=== PATIENT | female | born 1990 | race Caucasian/White ===

== ENCOUNTER 2018-09-09 00:19 | Inpatient (IN) | payer BC ==
[2018-09-09] MEDS ORDERED: Ringers Lactate 1,000 ML IV PRN (15:53)
[2018-09-09] MEDS ORDERED: PROMETHAZINE 25 MG/ML VIAL IM PRN ×2 (15:53)
[2018-09-09] MEDS ORDERED: BUTORPHANOL 1 MG/ML INJ IV PRN (15:53)
[2018-09-09] MEDS ORDERED: Ringers Lactate 1,000 ML IV SCH (16:00)
[2018-09-09] MEDS ORDERED: miSOPROStol 100 MCG TAB VAG SCH (16:00)
[2018-09-09] MEDS ORDERED: OXYTOCIN/LR 20 UNIT/1,000 ML BAG IV SCH (16:00)
[2018-09-09 17:05] LABS: RPR Titer ND
[2018-09-09 17:11] LABS: Basophils % 0.2 % (0-1.3); Eosinophils % 0.5 % (0-4.4); Hematocrit 38.9 % (36.0-45.0); Lymphocytes % 17.4 % (15.3-44.8); MPV 11.3 fL (7.6-11.3); Monocytes % 7.5 % (3.3-12.3); RBC Red Blood Cell Count 4.09 M/uL (3.86-4.86)
[2018-09-09 17:15] LABS: Urine Appearance CLOUDY; Urine Bilirubin NEGATIVE (NEG); Urine Blood TRACE (NEG); Urine Color YELLOW; Urine Glucose NEGATIVE (NEG); Urine Protein NEGATIVE (NEG)
[2018-09-09 17:23] LABS: Urine Microscopic Reflex ORDER UMIC
[2018-09-09 17:31] LABS: Urine Bacteria LOADED /HPF (<20); Urine Culture Reflex Order REFLEXED; Urine RBC <5 /HPF (NONE SEEN)
[2018-09-09 18:56] VITALS: BMI 40.2
--- NOTE | 2018-09-09 20:45 | PREOPHP ---
Date of Admission: 09/09/2018 This is a 27-year-old 3, para 2, 39 weeks today, Rh positive, immune to Rubella, negative bet a strep screen, for induction. She is about 1.5, almost 2 cm, 50% effaced, but the baby is still sidney rly high at -2 station, but it is applied to the cervix. FHTs are normal and reactive. Vital signs are all good. We have inserted one 25 mcg Cytotec after full discussion in our office and here again today. I anticipate this is probably all she needs and once she gets into a good active labor jeff rn, switch over to oxytocin. She is going to be wanting an epidural at 4 cm and of course, she knows that all she has to do is ask at that point. Full admission talk given. ANSELMO/MERI Voice ID: [id number]
[2018-09-09] MEDS ORDERED: ZOLPIDEM TARTRATE 5 MG TABLET ONE (21:35)
[2018-09-09 22:35] LABS: RPR (Rapid Plasma Reagin) NON-REACT (NON-REACT)
[2018-09-09] MEDS ORDERED: FENTANYL CITR 100 MCG/2 ML IV ONE (23:25)
[2018-09-09] MEDS ORDERED: ROPIVACAINE HCL 100 ML IV PRN (23:25)
[2018-09-09] MEDS ORDERED: ROPIVACAINE HCL 2 MG/ML 100ML IV ONE (23:30)
[2018-09-09] MEDS ORDERED: ROPIVACAINE HCL 20 ML ONE (23:52)
[2018-09-09] MEDS ORDERED: Ringers Lactate 2,000 ML IV ONE (23:52)
[2018-09-10] MEDS ORDERED: FENTANYL/BUPIVACAINE/NS/PF 200 MCG/100 ML BAG EP ONE (01:23)
[2018-09-10] MEDS ORDERED: METHYLERGONOVINE 0.2MG/ML AMP IM ONE (03:35)
[2018-09-10] MEDS ORDERED: LIDOCAINE 1% MPF 30 ML VIAL ONE (03:35)
[2018-09-10] MEDS ORDERED: Oxycodone HCl/Acetaminophen 1 TAB TAB PO PRN (04:01)
[2018-09-10] MEDS ORDERED: BISACODYL 10 MG RECTAL SUPP RECT PRN (04:01)
[2018-09-10] MEDS ORDERED: DIPHENHYDRAMINE 25 MG TAB/CAP PO PRN (04:01)
[2018-09-10] MEDS ORDERED: ACETAMINOPHEN 500 MG TAB PO PRN (04:01)
[2018-09-10] MEDS ORDERED: DOCUSATE NA/SENNA CONC 1 TAB PO PRN (04:01)
--- NOTE | 2018-09-10 04:47 | OP ---
Surgeon: Wilmer Garcia MD This is a 27-year-old, 3, para 2, at 39 weeks, for induction. Pros and cons of Cytotec dulce talley discussed. Patient was 1.5 cm on admission. 25 mcg Cytotec inserted intravaginally at about 4 :30 yesterday afternoon. This caused patient to go into good labor pattern during the night. She in itially requested Stadol and then membranes ruptured and she went into more active labor pattern; at which time, she requested and received epidural anesthesia. When I was called to delivery, patient w as complete, but still baby was at about 0 to +1 station and it was discovered that the baby was a fa ce presentation. However, with pushing within the next 5-7 minutes, patient delivered spontaneously and easily of an estimated 7-pound female, Apgars 9 and 10. No episiotomy. No laceration. Schultze delivery of the placenta, which was inspected and noted to be intact and normal. Less than 100 cc b lood loss. Baby looks absolutely great. Patient tolerated all procedures well. Rh positive, immune to Rubella. Negative beta strep screen. Final Diagnoses: Term intrauterine at 39 weeks. Cytotec for labor induction. Vaginal del zeke at 39 weeks 1 day. Epidural anesthesia. Face presentation. ANSELMO/MERI Voice ID: [id number] Report ID: [id number]
[2018-09-10] MEDS ORDERED: OXYTOCIN/LR 20 UNIT/1,000 ML BAG IV SCH (05:00)
[2018-09-10] MEDS: IBUPROFEN 200 MG TAB PO PRN ×2 (08:15→20:06)
--- NOTE | 2018-09-10 13:41 | PN ---
is afebrile, ambulating. Lochia is normal. We went over the entire dismissal summary, an d we will go over again tomorrow. Patient has had a Tdap administration during the . She h as no post epidural problems. No complaints or problems this morning. We will go over things again tomorrow. She will probably be dismissed around 9-10 in the morning. ANSELMO/MERI Voice ID: [id number] Report ID: [id number]
[2018-09-11] MEDS: Oxycodone HCl/Acetaminophen 1 TAB TAB PO PRN ×2 (00:50→07:10)
[2018-09-11] MEDS: IBUPROFEN 200 MG TAB PO PRN (04:18)
[2018-09-11 10:00] VITALS: BP 131/57; TEMP 97.1
--- NOTE | 2018-09-11 15:50 | DS ---
Date of Discharge: 09/11/2018 This 27-year-old 3, para 2, 39 weeks. Cytotec insertion, went into an active labor pattern. The next day delivered of a 7 pound 9 ounce female, Apgars 9 and 10, face presentation. No episioto my. No laceration. Schultze delivery of the placenta. Estimated blood loss 100 cc or less. Rh pos itive, immune to Rubella. Negative beta strep screen. ; afebrile, ambulating and voiding. Lochia is normal. She has had her Tdap immunization. She has no post epidural problems. Dismisse d with tramadol for analgesia although she may elect to take Motrin instead. Full dismissal strep in structions given. Final Diagnoses: Term intrauterine . Cytotec insertion at 39 weeks. Vaginal delivery at 3 9 weeks 1 day, face presentation, epidural anesthesia. ANSELMO/MERI Voice ID: [id number] Report ID: [id number]
[2018-09-12 19:15] LABS: HBsAG Nonreactive (Nonreactive)
== END 2018-09-11 09:15 | disposition home health service (06) | DRG 807 ==
LOC: 2ND-WC 15:42
PROVIDERS: ADMIT Specialist; ATTEND Specialist
PROC: 10E0XZZ Delivery of Products of Conception, External Approach (ICD-10-PCS; principal; 2018-09-10)
PROC: 3E0P7VZ Introduction of Hormone into Female Reproductive, Via Natural or Artificial Opening (ICD-10-PCS; 2018-09-10)
DX: O32.3XX0 Maternal care for face, brow and chin presentation, not applicable or unspecified (principal); Z37.0 Single live birth; Z3A.39 39 weeks gestation of pregnancy; O99.284 Endocrine, nutritional and metabolic diseases complicating childbirth; E07.9 Disorder of thyroid, unspecified
CPT/HCPCS: 36415; 81003; 81015; 85025; 86592; 86901; 87086; 87088; 87340; J0595; J2210; J2550; J2590; J2795; J3010